=== PATIENT | male | born 1965 | race Caucasian/White ===

== ENCOUNTER 2016-10-20 09:03 | Emergency (ER) | payer OTHER ==
[~2016-10-20] VITALS: Ht 185.4 cm; Wt 130.0 kg
[2016-10-20] MEDS ORDERED: PERCOCET 5/31 TABLET PO (13:11)
[2016-10-20 13:37] VITALS: BP 167/93
== END 2016-10-20 13:38 | disposition home or self-care (01) ==
LOC: EME 09:03
PROC: 0H9CXZZ Drainage of Left Upper Arm Skin, External Approach (ICD-10-PCS; principal; 2016-10-20)
DX: L72.3 Sebaceous cyst (principal)
CPT/HCPCS: 76882; 87070; 87075; 87076; 87205; 99281; 99284

== ENCOUNTER 2017-04-12 11:46 | Emergency (ER) | payer OTHER ==
[~2017-04-12] VITALS: Ht 185.4 cm; Wt 129.5 kg
[~2017-04-12 11:46] MED LIST: PERCOCET 5/31 TABLET PO
[2017-04-12 13:58] LABS: HEMATOCRIT 44.2 % (38.0-50.0); MCH 29.1 PG (29.0-34.0); MCHC 32.6 G/DL (30.0-36.0); MCV 89.5 FL (86-99); MEAN PLAT.VOLUME 10.5 uM^3 (9.0-12.4); PLATELET COUNT 214 K/uL (156-360); RBC DIS.WIDTH-CV 12.6 % (11.8-14.6); RBC DIS.WIDTH-SD 41.4 % (39-53); RED BLOOD COUNT 4.94 M/uL (4.00-5.50); WHITE BLOOD COUNT 14.3 K/uL (4.1-10.2)
[2017-04-12 14:10] LABS: CHLORIDE 103 mEq/L (99-109); POTASSIUM 4.9 mEq/L (3.7-5.4); SODIUM 140 mEq/L (136-147)
[2017-04-12 14:12] LABS: GLUCOSE 94 mg/dL (70-99)
[2017-04-12 14:13] LABS: ADD MIUA? YES; BILIRUBIN NEGATIVE; BLOOD SMALL; COLOR AMBER ((YELLOW)); GLUCOSE (STRIP) NEGATIVE; KETONES 20; LEUKOCYTES NEGATIVE; NITRITE NEGATIVE; PROTEIN (STRIP) 30; SPECIFIC GRAVITY 1.026 (1.000-1.030); UROBILINOGEN 0.2 MG/DL (0.2-1.0)
[2017-04-12 14:13] LABS: ANION GAP 12 MEQ/L (2-14)
[2017-04-12 14:16] LABS: GFR ESTIMATE (CALCULATED) > 59 mL/min/
[2017-04-12 14:17] LABS: UREA NITROGEN (BUN) 14 mg/dL (9-23)
[2017-04-12 14:19] LABS: TROP-I INTERPRETATION NEGATIVE; TROPONIN-I < 0.01 ng/mL (0.0-0.30)
[2017-04-12 14:23] LABS: BACTERIA RARE /HPF; EPITHELIAL CELLS RARE /HPF; MUCUS 2+ /LPF; RED BLOOD CELLS 0-5 /HPF (0-5); WHITE BLOOD CELLS 0-5 /HPF (0-5)
[2017-04-12 14:25] LABS: TOTAL BILIRUBIN 1.8 mg/dL (0.0-1.0)
[2017-04-12 14:26] LABS: ALKALINE PHOSPHATASE 116 IU/L (3-129)
[2017-04-12 14:28] LABS: DIRECT BILIRUBIN 0.8 mg/dL (0.0-0.3)
[2017-04-12 14:29] LABS: LIPASE 8 U/L (1.0-51.0)
[2017-04-12] MEDS ORDERED: PEPCID20 MG PO (16:19)
[2017-04-12] MEDS ORDERED: CARAFATE1 GM PO (16:19)
[2017-04-12 16:29] VITALS: BP 141/76
== END 2017-04-12 16:30 | disposition home or self-care (01) ==
LOC: EME 11:46
PROVIDERS: Physician Assistant
DX: R10.13 Epigastric pain (principal)
CPT/HCPCS: 71020; 76705; 80048; 80076; 81003; 83690; 84484; 85027; 93005; 99281; 99284

== ENCOUNTER 2017-05-02 05:24 | Day surgery (SDC) | payer OTHER ==
[~2017-05-02] VITALS: Ht 185.4 cm; Wt 127.0 kg
[~2017-05-02 05:24] MED LIST changes: +CARAFATE1 GM PO; +PEPCID20 MG PO; +PRILOSEC20 MG PO
[2017-05-02] MEDS ORDERED: PERCOCET 5/31 TABLET PO (09:09)
[2017-05-02] MEDS ORDERED: COLACE100 MG PO (09:09)
[2017-05-02 10:02] VITALS: BP 130/71
[2017-05-02 11:06] VITALS: BP 132/82
== END 2017-05-02 11:10 | disposition home or self-care (01) ==
LOC: SDC 05:24
PROC: 0FT44ZZ Resection of Gallbladder, Percutaneous Endoscopic Approach (ICD-10-PCS; principal; 2017-05-02)
DX: K80.10 Calculus of gallbladder with chronic cholecystitis without obstruction (principal); R12 Heartburn; Z82.49 Family history of ischemic heart disease and other diseases of the circulatory system
CPT/HCPCS: 88304; J0131; J0330; J0690; J1100; J1170; J2250; J2405; J2710; J3010

== ENCOUNTER → 2017-06-17 | Outpatient (CLI) | payer OTHER ==
[~2017-06-17] VITALS: Ht 185.4 cm; Wt 122.4 kg
[~2017-06-17] MED LIST changes: +COLACE100 MG PO
== END | disposition home or self-care (01) ==
LOC: AMB 06:57
DX: Z12.11 Encounter for screening for malignant neoplasm of colon (principal); D12.7 Benign neoplasm of rectosigmoid junction; D12.0 Benign neoplasm of cecum; K63.5 Polyp of colon; K57.30 Diverticulosis of large intestine without perforation or abscess without bleeding; K64.8 Other hemorrhoids; K80.20 Calculus of gallbladder without cholecystitis without obstruction; M54.5 Low back pain; R12 Heartburn
CPT/HCPCS: 88305; J2250